=== PATIENT | male | born 1945 | race Caucasian/White ===

== ENCOUNTER 2017-02-15 11:49 | Inpatient (IN) ==
[2017-02-15] MEDS ORDERED: SODIUM CHLORIDE 0.9% 1,000 ML IV STA (13:58)
[2017-02-15 14:25] LABS: Basophils % 0.2 % (0.0-0.8); Eosinophils % 0.2 % (0.00-10.9); Hematocrit 30.3 VOL% (42.0-52.0); Hemoglobin 10.2 GM/DL (14.0-18.0); Immature Granulocytes % 0.7 %; Immature Granulocytes Absolute 0.04 #; Lymphocytes # 0.4 10*3/uL (1.4-4.0); Lymphocytes % 6.6 % (21.2-54.2); Mean Corpuscular HGB Conc 33.7 GM/DL (32-36); Mean Corpuscular Hemoglobin 31 PG (27-34); Mean Platelet Volume 10.3 FL (9.6-12.0); Monocytes # 0.5 10*3/uL (0.11-0.8); Monocytes % 8.5 % (1.7-12.7); Neutrophils % 83.8 % (38.7-73.9); Platelet Count 277 T/CUMM (130-400); Red Blood Count 3.33 MC/CUMM (3.8-5.5); Red Cell Distribution Width 15.6 % (9.3-17.3); White Blood Count 5.9 T/CUMM (4-12)
[2017-02-15 14:33] LABS: PT Patient Result 10.7 SECS
[2017-02-15 14:43] LABS: Bilirubin,Total 1.4 MG/DL (0.2-1.0); Calcium 9.5 MG/DL (8.5-10.1); Magnesium 2.2 MG/DL (1.8-2.4); Osmolality,Calculated 274.8 MOS/KG (273-304); Potassium 3.1 MMOL/L (3.5-5.1); Total Protein 7.7 G/DL (6.4-8.3)
[2017-02-15] MEDS ORDERED: ONDANSETRON 4 MG/2 ML VIAL ONE (15:50)
[2017-02-15] MEDS ORDERED: HYDROmorphone 2 MG/1 ML VIAL ONE (15:50)
[2017-02-15] MEDS ORDERED: guaiFENesin 200 MG/10 ML UDCUP PO PRN (17:17)
[2017-02-15] MEDS ORDERED: LOPERAMIDE 2 MG CAPSULE PO PRN ×2 (17:17)
[2017-02-15] MEDS ORDERED: PROMETHAZINE INJ 25 MG in SODIUM CHLORIDE 0.9% 50 ML IV PRN (17:17)
[2017-02-15] MEDS ORDERED: traMADol 50 MG TABLET PO PRN (17:17)
[2017-02-15] MEDS ORDERED: ACETAMINOPHEN 325 MG TABLET PO PRN (17:17)
[2017-02-15] MEDS ORDERED: MYLANTA/LIDO VISC 2:1 300 ML BOTTLE SWISH/SWAL PRN (17:17)
[2017-02-15] MEDS ORDERED: MYLANTA/LIDO VISC 2:1 300 ML BOTTLE SWISH/SPIT PRN (17:17)
[2017-02-15] MEDS ORDERED: chlorproMAZINE 25 MG TABLET PO PRN (17:17)
[2017-02-15] MEDS ORDERED: MAGNESIUM HYDROXIDE SUSP 30 ML UDCUP PO PRN (17:17)
[2017-02-15] MEDS ORDERED: ONDANSETRON 4 MG/2 ML VIAL IV PRN (17:17)
[2017-02-15] MEDS ORDERED: LACTULOSE 20 GM/30 ML UDCUP PO PRN (17:17)
[2017-02-15] MEDS ORDERED: chlorproMAZINE INJ 25 MG in SODIUM CHLORIDE 0.9% 100 ML IV PRN (17:17)
[2017-02-15] MEDS ORDERED: chlorproMAZINE INJ 50 MG in SODIUM CHLORIDE 0.9% 100 ML IV PRN (17:17)
[2017-02-15] MEDS ORDERED: HYDROmorphone 2 MG/1 ML VIAL IV STA (17:17)
[2017-02-15] MEDS ORDERED: TEMAZEPAM 7.5 MG CAPSULE PO PRN (17:17)
[2017-02-15] MEDS ORDERED: diphenhydrAMINE CAP 25 MG CAPSULE PO PRN (17:17)
[2017-02-15] MEDS ORDERED: ALPRAZolam 0.25 MG TABLET PO PRN (17:17)
[2017-02-15] MEDS ORDERED: ALUMINUM/MAGNES/SIMETH MAX STR 30 ML UDCUP PO PRN (17:17)
[2017-02-15] MEDS ORDERED: BENZTROPINE 2 MG/2 ML AMP IV PRN (17:17)
[2017-02-15] MEDS ORDERED: ONDANSETRON 4 MG/2 ML VIAL IV STA (17:59)
[2017-02-15] MEDS: SODIUM CHLORIDE 0.45% 1,000 ML IV SCH (18:24)
[2017-02-15] MEDS: MORPHINE 2 MG/1 ML SYRINGE IV PRN ×2 (18:24→23:59)
[2017-02-16] MEDS: MORPHINE 2 MG/1 ML SYRINGE IV PRN ×3 (03:56→10:04)
[2017-02-16] MEDS: SODIUM CHLORIDE 0.45% 1,000 ML IV SCH ×2 (04:35→14:01)
[2017-02-16] MEDS ORDERED: MECLIZINE 25 MG TABLET PO PRN (08:17)
[2017-02-16] MEDS ORDERED: ONDANSETRON 4 MG TABLET PO PRN (08:17)
[2017-02-16] MEDS ORDERED: [UNRECOGNIZED DRUG - SUPPLY] TOP PRN (08:17)
[2017-02-16] MEDS ORDERED: BENZONATATE 100 MG CAPSULE PO PRN (08:17)
[2017-02-16] MEDS ORDERED: PROMETHAZINE 25 MG TABLET PO PRN (08:17)
[2017-02-16] MEDS ORDERED: CYANOCOBALAMIN 1000 MCG/1 ML VIAL IM SCH (08:30)
[2017-02-16 09:26] LABS: Troponin I Only < 0.015 NG/ML (0.00-0.045)
[2017-02-16] MEDS: POTASSIUM CHLORIDE 20 MEQ/15 ML UDCUP PO SCH (09:54)
[2017-02-16] MEDS: MYLANTA/LIDO VISC/DIPH 300 ML BOTTLE SWISH/SWAL SCH ×2 (17:48→20:14)
[2017-02-16] MEDS: DONEPEZIL 10 MG TABLET PO SCH (20:14)
[2017-02-16] MEDS: ASPIRIN EC 81 MG TABLET PO SCH (20:14)
[2017-02-17] MEDS: SODIUM CHLORIDE 0.45% 1,000 ML IV SCH ×3 (00:08→15:23)
[2017-02-17 05:44] LABS: Basophils % 0.2 % (0.0-0.8); Eosinophils % 0.7 % (0.00-10.9); Hematocrit 30.5 VOL% (42.0-52.0); Hemoglobin 10.2 GM/DL (14.0-18.0); Immature Granulocytes % 0.4 %; Immature Granulocytes Absolute 0.02 #; Lymphocytes # 0.4 10*3/uL (1.4-4.0); Lymphocytes % 7.9 % (21.2-54.2); Mean Corpuscular HGB Conc 33.4 GM/DL (32-36); Mean Corpuscular Hemoglobin 30 PG (27-34); Mean Platelet Volume 10.8 FL (9.6-12.0); Monocytes # 0.4 10*3/uL (0.11-0.8); Monocytes % 9.5 % (1.7-12.7); Neutrophils # 3.7 10*3/uL (1.4-7.4); Neutrophils % 81.3 % (38.7-73.9); Platelet Count 226 T/CUMM (130-400); Red Blood Count 3.35 MC/CUMM (3.8-5.5); Red Cell Distribution Width 15.6 % (9.3-17.3); White Blood Count 4.5 T/CUMM (4-12)
[2017-02-17 06:23] LABS: Calcium 8.3 MG/DL (8.5-10.1); Magnesium 2.2 MG/DL (1.8-2.4); Osmolality,Calculated 277.3 MOS/KG (273-304); Potassium 3.6 MMOL/L (3.5-5.1)
[2017-02-17] MEDS: MYLANTA/LIDO VISC/DIPH 300 ML BOTTLE SWISH/SWAL SCH ×4 (07:40→20:54)
[2017-02-17] MEDS: MORPHINE 2 MG/1 ML SYRINGE IV PRN ×2 (07:45→17:06)
[2017-02-17] MEDS ORDERED: LIDOCAINE 2% 5 ML VIAL ONE (16:17)
[2017-02-17] MEDS ORDERED: PROPOFOL 200 MG/20 ML VIAL IV ONE (16:17)
[2017-02-17] MEDS: POTASSIUM CHLORIDE 20 MEQ/15 ML UDCUP PO SCH (16:48)
[2017-02-17] MEDS: DONEPEZIL 10 MG TABLET PO SCH (20:54)
[2017-02-17] MEDS: ASPIRIN EC 81 MG TABLET PO SCH (20:54)
[2017-02-18] MEDS: HYDROcod/ACETAMIN 7.5-325 MG/15 ML UDCUP PO PRN ×2 (02:09→09:18)
[2017-02-18] MEDS: SODIUM CHLORIDE 0.45% 1,000 ML IV SCH ×2 (02:10→09:11)
[2017-02-18 03:48] LABS: Basophils % 0.3 % (0.0-0.8); Eosinophils % 0.3 % (0.00-10.9); Hematocrit 29.4 VOL% (42.0-52.0); Hemoglobin 9.8 GM/DL (14.0-18.0); Immature Granulocytes % 0.3 %; Immature Granulocytes Absolute 0.02 #; Lymphocytes # 0.4 10*3/uL (1.4-4.0); Lymphocytes % 6.2 % (21.2-54.2); Mean Corpuscular HGB Conc 33.3 GM/DL (32-36); Mean Corpuscular Hemoglobin 31 PG (27-34); Mean Corpuscular Volume 92.2 FL (87-102); Mean Platelet Volume 10.9 FL (9.6-12.0); Monocytes # 0.5 10*3/uL (0.11-0.8); Monocytes % 8.4 % (1.7-12.7); Neutrophils # 4.9 10*3/uL (1.4-7.4); Neutrophils % 84.5 % (38.7-73.9); PT Patient Result 10.9 SECS; Platelet Count 228 T/CUMM (130-400); Red Blood Count 3.19 MC/CUMM (3.8-5.5); Red Cell Distribution Width 15.8 % (9.3-17.3); White Blood Count 5.8 T/CUMM (4-12)
[2017-02-18 04:10] LABS: Albumin 3.2 G/DL (3.4-5.0); Bilirubin,Total 1.1 MG/DL (0.2-1.0); Calcium 8.4 MG/DL (8.5-10.1); Magnesium 2.2 MG/DL (1.8-2.4); Osmolality,Calculated 277.3 MOS/KG (273-304); Total Protein 5.9 G/DL (6.4-8.3)
[2017-02-18] MEDS: MYLANTA/LIDO VISC/DIPH 300 ML BOTTLE SWISH/SWAL SCH (07:22)
[2017-02-18] MEDS: POTASSIUM CHLORIDE 20 MEQ/15 ML UDCUP PO SCH (09:13)
[2017-02-18 15:03] VITALS: BP 113/70
[2017-02-18] MEDS ORDERED: SUCRALFATE 1 GM/10 ML UDCUP PO SCH (16:30)
== END 2017-02-18 16:50 | disposition home health service (06) | DRG 392 ==
LOC: N.ED 11:49 → N.EDINP 16:17 → N.4E 18:05
PROVIDERS: ADMIT Specialist; ATTEND Specialist

== ENCOUNTER 2017-04-27 10:19 | Inpatient (IN) ==
[2017-04-27 13:15] LABS: Basophils % 0.3 % (0.0-0.8); Eosinophils % 0.3 % (0.00-10.9); Hematocrit 31.6 VOL% (42.0-52.0); Hemoglobin 10.3 GM/DL (14.0-18.0); Immature Granulocytes % 0.7 %; Immature Granulocytes Absolute 0.04 #; Lymphocytes # 0.3 10*3/uL (1.4-4.0); Lymphocytes % 4.7 % (21.2-54.2); Mean Corpuscular HGB Conc 32.6 GM/DL (32-36); Mean Corpuscular Hemoglobin 28 PG (27-34); Mean Corpuscular Volume 84.5 FL (87-102); Mean Platelet Volume 10.3 FL (9.6-12.0); Monocytes # 0.3 10*3/uL (0.11-0.8); Monocytes % 5.6 % (1.7-12.7); Neutrophils # 5.4 10*3/uL (1.4-7.4); Neutrophils % 88.4 % (38.7-73.9); Platelet Count 356 T/CUMM (130-400); Red Blood Count 3.74 MC/CUMM (3.8-5.5); Red Cell Distribution Width 13.7 % (9.3-17.3); White Blood Count 6.1 T/CUMM (4-12)
[2017-04-27 13:45] LABS: Eosinophils 2 % (0-10); Giant Platelets Few; Hypochromasia 1+; Lymphocytes 6 % (20-55); Ovalocytes Slight; Platelet Estimate Adequate; Segmented Neutrophils 89 % (50-85); Total Cells Counted 100
[2017-04-27 14:34] LABS: Albumin 2.5 G/DL (3.4-5.0); Bilirubin,Total 0.5 MG/DL (0.2-1.0); Calcium 8.9 MG/DL (8.5-10.1); Osmolality,Calculated 277.5 MOS/KG (273-304); Potassium 4.1 MMOL/L (3.5-5.1); Total Protein 7.1 G/DL (6.4-8.3)
[2017-04-27] MEDS ORDERED: methylPREDNISolone SOD SUC 125 MG/2 ML VIAL IV STA (14:53)
[2017-04-27] MEDS ORDERED: PIPERACILLIN/TAZOBACTAM 3,375 MG in SODIUM CHLORIDE 0.9% 100 ML IV STA (14:53)
[2017-04-27] MEDS ORDERED: PIPERACILLIN/TAZOBACTAM 3,375 MG VIAL IV ONE (15:39)
[2017-04-27] MEDS ORDERED: methylPREDNISolone SOD SUC 125 MG/2 ML VIAL ONE (15:39)
[2017-04-27] MEDS ORDERED: MYLANTA/LIDO VISC 2:1 300 ML BOTTLE SWISH/SWAL PRN (18:17)
[2017-04-27] MEDS ORDERED: chlorproMAZINE INJ 25 MG in SODIUM CHLORIDE 0.9% 100 ML IV PRN (18:17)
[2017-04-27] MEDS ORDERED: chlorproMAZINE 25 MG TABLET PO PRN (18:17)
[2017-04-27] MEDS ORDERED: LOPERAMIDE 2 MG CAPSULE PO PRN ×2 (18:17)
[2017-04-27] MEDS ORDERED: ALPRAZolam 0.25 MG TABLET PO PRN (18:17)
[2017-04-27] MEDS ORDERED: ONDANSETRON 4 MG/2 ML VIAL IV PRN (18:17)
[2017-04-27] MEDS ORDERED: MAGNESIUM HYDROXIDE SUSP 30 ML UDCUP PO PRN (18:17)
[2017-04-27] MEDS ORDERED: chlorproMAZINE INJ 50 MG in SODIUM CHLORIDE 0.9% 100 ML IV PRN (18:17)
[2017-04-27] MEDS ORDERED: PROMETHAZINE INJ 25 MG in SODIUM CHLORIDE 0.9% 50 ML IV PRN (18:17)
[2017-04-27] MEDS ORDERED: BENZTROPINE 2 MG/2 ML AMP IV PRN (18:17)
[2017-04-27] MEDS ORDERED: MYLANTA/LIDO VISC 2:1 300 ML BOTTLE SWISH/SPIT PRN (18:17)
[2017-04-27] MEDS ORDERED: guaiFENesin 200 MG/10 ML UDCUP PO PRN (18:17)
[2017-04-27] MEDS ORDERED: LACTULOSE 20 GM/30 ML UDCUP PO PRN (18:17)
[2017-04-27] MEDS ORDERED: ACETAMINOPHEN 325 MG TABLET PO PRN (18:17)
[2017-04-27] MEDS ORDERED: traMADol 50 MG TABLET PO PRN (18:17)
[2017-04-27] MEDS ORDERED: diphenhydrAMINE CAP 25 MG CAPSULE PO PRN (18:17)
[2017-04-27] MEDS: SODIUM CHLORIDE 0.9% 1,000 ML IV SCH (19:06)
[2017-04-27 19:38] LABS: Albumin 2.6 G/DL (3.4-5.0); Bilirubin,Total 0.7 MG/DL (0.2-1.0); Calcium 8.9 MG/DL (8.5-10.1); Osmolality,Calculated 276.7 MOS/KG (273-304); Potassium 3.7 MMOL/L (3.5-5.1); Total Protein 6.9 G/DL (6.4-8.3)
[2017-04-28 09:09] LABS: Apearance,Urine Slightly Hazy (Clear); Bilirubin,Urine Negative (Negative); Blood, Urine Negative (Negative); Glucose,Urine (UA) 50 mg/dL (Negative); Ketones,Urine Negative (Negative); Mucus,Urine Many /LPF (Occasional); Nitrite,Urine Negative (Negative); Protein,Urine Negative; Urine Color Yellow (Yellow); Urine Specific Gravity 1.025 (1.001-1.035); Urine Urobilinogen < 2.0 EU/DL (0.2-1.0); WBC,Urine 2 /HPF (0-6)
[2017-04-28] MEDS ORDERED: BENZONATATE 100 MG CAPSULE PO PRN (09:25)
[2017-04-28] MEDS ORDERED: fentaNYL 12 MCG/HR PATCH TRANSDERM SCH (09:30)
[2017-04-28] MEDS ORDERED: CYANOCOBALAMIN 1000 MCG/1 ML VIAL IM SCH (09:30)
[2017-04-28 09:37] LABS: ABG Base Excess 2.5 MMOL/L (-2.5-2.5); ABG HCO3 26.5 MMOL/L (20-26); ABG Oxygen Saturation 88.8 % (95-100); ABG PCO2 35.1 MM HG (35-48); ABG PH 7.476 (7.35-7.45); ABG PO2 57.5 MM HG (80-95); ABG TCO2 23.5 MMOL/L (23-27)
[2017-04-28] MEDS: methylPREDNISolone SOD SUC 40 MG/1 ML VIAL IV SCH ×2 (09:37→20:29)
[2017-04-28] MEDS: SULFAMETHOX/TRIMETHOPRIM 800-160 MG TABLET PO SCH ×2 (09:37→20:34)
[2017-04-28] MEDS: AZITHROMYCIN INJ 250 MG in SODIUM CHLORIDE 0.9% 250 ML IV SCH (09:38)
[2017-04-28] MEDS: SODIUM CHLORIDE 0.9% 1,000 ML IV SCH ×2 (09:48→23:54)
[2017-04-28] MEDS ORDERED: ONDANSETRON 4 MG TABLET PO PRN (10:00)
[2017-04-28] MEDS: FONDAPARINUX 2.5 MG/0.5 ML SYRINGE SUBCUT SCH (11:52)
[2017-04-28] MEDS: SUCRALFATE 1 GM/10 ML UDCUP PO SCH ×3 (11:53→20:34)
[2017-04-28] MEDS: fentaNYL 12 MCG/HR PATCH TRANSDERM SCH (11:53)
[2017-04-28] MEDS: PIPERACILLIN/TAZOBACTAM 3,375 MG in SODIUM CHLORIDE 0.9% 100 ML IV SCH ×2 (11:54→20:33)
[2017-04-28] MEDS: ALBUTEROL/IPRATROPIUM 3 ML NEB RESP TX SCH ×2 (13:48→19:45)
[2017-04-28] MEDS: HYDROcod/ACETAMIN 7.5-325 MG/15 ML UDCUP PO PRN (17:56)
[2017-04-28] MEDS: ASPIRIN EC 81 MG TABLET PO SCH (20:34)
[2017-04-28] MEDS: DONEPEZIL 10 MG TABLET PO SCH (20:34)
[2017-04-29] MEDS: PIPERACILLIN/TAZOBACTAM 3,375 MG in SODIUM CHLORIDE 0.9% 100 ML IV SCH ×3 (04:46→20:41)
[2017-04-29] MEDS: SODIUM CHLORIDE 0.9% 1,000 ML IV SCH (05:03)
[2017-04-29 05:26] LABS: Hematocrit 29.7 VOL% (42.0-52.0); Hemoglobin 9.6 GM/DL (14.0-18.0); Immature Granulocytes Absolute 0.09 #; Lymphocytes # 0.2 10*3/uL (1.4-4.0); Lymphocytes % 2.1 % (21.2-54.2); Mean Corpuscular HGB Conc 32.3 GM/DL (32-36); Mean Corpuscular Hemoglobin 28 PG (27-34); Mean Corpuscular Volume 85.8 FL (87-102); Mean Platelet Volume 10.3 FL (9.6-12.0); Monocytes # 0.2 10*3/uL (0.11-0.8); Neutrophils % 94.9 % (38.7-73.9); Platelet Count 359 T/CUMM (130-400); Red Blood Count 3.46 MC/CUMM (3.8-5.5); Red Cell Distribution Width 13.7 % (9.3-17.3); White Blood Count 9.5 T/CUMM (4-12)
[2017-04-29 05:50] LABS: Band Neutrophils 2 % (0-10); Lymphocytes 3 % (20-55); Platelet Estimate Normal; Segmented Neutrophils 94 % (50-85); Total Cells Counted 100
[2017-04-29 06:02] LABS: Calcium 8.3 MG/DL (8.5-10.1); Osmolality,Calculated 288.1 MOS/KG (273-304); Potassium 4.2 MMOL/L (3.5-5.1)
[2017-04-29] MEDS: ALBUTEROL/IPRATROPIUM 3 ML NEB RESP TX SCH ×3 (07:41→19:40)
[2017-04-29] MEDS: SUCRALFATE 1 GM/10 ML UDCUP PO SCH ×4 (09:17→20:39)
[2017-04-29] MEDS: SULFAMETHOX/TRIMETHOPRIM 800-160 MG TABLET PO SCH ×2 (09:17→20:39)
[2017-04-29] MEDS: POTASSIUM CHLORIDE 8 MEQ CAPSULE PO SCH (09:18)
[2017-04-29] MEDS: PANTOPRAZOLE 40 MG TABLET PO SCH (09:18)
[2017-04-29] MEDS: methylPREDNISolone SOD SUC 40 MG/1 ML VIAL IV SCH ×2 (09:18→20:39)
[2017-04-29] MEDS: FONDAPARINUX 2.5 MG/0.5 ML SYRINGE SUBCUT SCH (09:22)
[2017-04-29] MEDS: AZITHROMYCIN INJ 250 MG in SODIUM CHLORIDE 0.9% 250 ML IV SCH (09:22)
[2017-04-29] MEDS: HYDROcod/ACETAMIN 7.5-325 MG/15 ML UDCUP PO PRN (15:43)
[2017-04-29] MEDS: ASPIRIN EC 81 MG TABLET PO SCH (20:39)
[2017-04-29] MEDS: DONEPEZIL 10 MG TABLET PO SCH (20:39)
[2017-04-30] MEDS: PIPERACILLIN/TAZOBACTAM 3,375 MG in SODIUM CHLORIDE 0.9% 100 ML IV SCH ×3 (04:16→20:27)
[2017-04-30 06:26] LABS: Hematocrit 30.7 VOL% (42.0-52.0); Hemoglobin 9.5 GM/DL (14.0-18.0); Immature Granulocytes % 1.1 %; Immature Granulocytes Absolute 0.09 #; Lymphocytes # 0.2 10*3/uL (1.4-4.0); Lymphocytes % 2.8 % (21.2-54.2); Mean Corpuscular HGB Conc 30.9 GM/DL (32-36); Mean Corpuscular Hemoglobin 27 PG (27-34); Mean Corpuscular Volume 87.7 FL (87-102); Mean Platelet Volume 10.8 FL (9.6-12.0); Monocytes # 0.1 10*3/uL (0.11-0.8); Monocytes % 1.6 % (1.7-12.7); Neutrophils # 7.9 10*3/uL (1.4-7.4); Neutrophils % 94.5 % (38.7-73.9); Platelet Count 358 T/CUMM (130-400); White Blood Count 8.3 T/CUMM (4-12)
[2017-04-30 06:53] LABS: Calcium 8.1 MG/DL (8.5-10.1); Osmolality,Calculated 283.5 MOS/KG (273-304); Potassium 4.5 MMOL/L (3.5-5.1)
[2017-04-30 07:03] LABS: Lymphocytes 7 % (20-55); Segmented Neutrophils 92 % (50-85); Total Cells Counted 100
[2017-04-30 07:04] LABS: Anisocytosis 1+; Hypochromasia 1+; Ovalocytes Few; Platelet Estimate Normal
[2017-04-30] MEDS: ALBUTEROL/IPRATROPIUM 3 ML NEB RESP TX SCH ×3 (07:05→20:25)
[2017-04-30] MEDS: methylPREDNISolone SOD SUC 40 MG/1 ML VIAL IV SCH ×3 (08:45→20:22)
[2017-04-30] MEDS: SULFAMETHOX/TRIMETHOPRIM 800-160 MG TABLET PO SCH ×2 (08:46→20:21)
[2017-04-30] MEDS: SUCRALFATE 1 GM/10 ML UDCUP PO SCH ×4 (08:46→20:22)
[2017-04-30] MEDS: PANTOPRAZOLE 40 MG TABLET PO SCH (08:46)
[2017-04-30] MEDS: POTASSIUM CHLORIDE 8 MEQ CAPSULE PO SCH (08:46)
[2017-04-30] MEDS: AZITHROMYCIN INJ 250 MG in SODIUM CHLORIDE 0.9% 250 ML IV SCH (09:01)
[2017-04-30] MEDS: FONDAPARINUX 2.5 MG/0.5 ML SYRINGE SUBCUT SCH (11:52)
[2017-04-30] MEDS: SODIUM CHLORIDE 0.9% 1,000 ML IV SCH ×2 (13:43→23:40)
[2017-04-30] MEDS: ASPIRIN EC 81 MG TABLET PO SCH (20:21)
[2017-04-30] MEDS: DONEPEZIL 10 MG TABLET PO SCH (20:21)
[2017-05-01] MEDS: methylPREDNISolone SOD SUC 40 MG/1 ML VIAL IV SCH ×4 (02:13→20:29)
[2017-05-01 05:23] LABS: Basophils % 0.1 % (0.0-0.8); Hematocrit 31.9 VOL% (42.0-52.0); Hemoglobin 10.1 GM/DL (14.0-18.0); Immature Granulocytes % 2.3 %; Immature Granulocytes Absolute 0.17 #; Lymphocytes # 0.2 10*3/uL (1.4-4.0); Lymphocytes % 2.6 % (21.2-54.2); Mean Corpuscular HGB Conc 31.7 GM/DL (32-36); Mean Corpuscular Hemoglobin 27 PG (27-34); Mean Corpuscular Volume 86.2 FL (87-102); Mean Platelet Volume 10.3 FL (9.6-12.0); Monocytes # 0.2 10*3/uL (0.11-0.8); Monocytes % 2.6 % (1.7-12.7); NRBC # 0.03 10*3/uL; Neutrophils # 6.8 10*3/uL (1.4-7.4); Neutrophils % 92.4 % (38.7-73.9); Platelet Count 386 T/CUMM (130-400); Red Cell Distribution Width 14.1 % (9.3-17.3); White Blood Count 7.3 T/CUMM (4-12)
[2017-05-01 05:53] LABS: Calcium 8.7 MG/DL (8.5-10.1); Osmolality,Calculated 280.7 MOS/KG (273-304); Potassium 4.7 MMOL/L (3.5-5.1)
[2017-05-01 06:03] LABS: Band Neutrophils 1 % (0-10); Lymphocytes 8 % (20-55); Platelet Estimate Normal; Segmented Neutrophils 90 % (50-85); Total Cells Counted 100
[2017-05-01] MEDS: ALBUTEROL/IPRATROPIUM 3 ML NEB RESP TX SCH ×3 (07:57→19:09)
[2017-05-01] MEDS: AZITHROMYCIN INJ 250 MG in SODIUM CHLORIDE 0.9% 250 ML IV SCH (08:26)
[2017-05-01] MEDS: SULFAMETHOX/TRIMETHOPRIM 800-160 MG TABLET PO SCH ×2 (08:27→20:24)
[2017-05-01] MEDS: PANTOPRAZOLE 40 MG TABLET PO SCH (08:27)
[2017-05-01] MEDS: SUCRALFATE 1 GM/10 ML UDCUP PO SCH ×4 (08:27→20:25)
[2017-05-01] MEDS: POTASSIUM CHLORIDE 8 MEQ CAPSULE PO SCH (08:27)
[2017-05-01] MEDS ORDERED: FUROSEMIDE 40 MG/4 ML VIAL IV ONE (09:34)
[2017-05-01] MEDS: PIPERACILLIN/TAZOBACTAM 3,375 MG in SODIUM CHLORIDE 0.9% 100 ML IV SCH ×2 (10:27→16:03)
[2017-05-01] MEDS: FONDAPARINUX 2.5 MG/0.5 ML SYRINGE SUBCUT SCH (10:30)
[2017-05-01] MEDS: fentaNYL 12 MCG/HR PATCH TRANSDERM SCH (10:31)
[2017-05-01] MEDS: ASPIRIN EC 81 MG TABLET PO SCH (20:24)
[2017-05-01] MEDS: DONEPEZIL 10 MG TABLET PO SCH (20:24)
[2017-05-02] MEDS: PIPERACILLIN/TAZOBACTAM 3,375 MG in SODIUM CHLORIDE 0.9% 100 ML IV SCH ×3 (01:16→17:08)
[2017-05-02] MEDS: TEMAZEPAM 7.5 MG CAPSULE PO PRN ×2 (01:20→21:53)
[2017-05-02] MEDS: methylPREDNISolone SOD SUC 40 MG/1 ML VIAL IV SCH ×4 (02:47→21:50)
[2017-05-02 05:28] LABS: Basophils % 0.2 % (0.0-0.8); Hematocrit 33.8 VOL% (42.0-52.0); Hemoglobin 10.7 GM/DL (14.0-18.0); Immature Granulocytes Absolute 0.25 #; Lymphocytes # 0.2 10*3/uL (1.4-4.0); Lymphocytes % 2.8 % (21.2-54.2); Mean Corpuscular HGB Conc 31.7 GM/DL (32-36); Mean Corpuscular Hemoglobin 27 PG (27-34); Mean Corpuscular Volume 85.6 FL (87-102); Mean Platelet Volume 10.1 FL (9.6-12.0); Monocytes # 0.4 10*3/uL (0.11-0.8); Monocytes % 4.2 % (1.7-12.7); NRBC # 0.04 10*3/uL; Neutrophils # 7.5 10*3/uL (1.4-7.4); Neutrophils % 89.8 % (38.7-73.9); Platelet Count 423 T/CUMM (130-400); Red Blood Count 3.95 MC/CUMM (3.8-5.5); Red Cell Distribution Width 14.6 % (9.3-17.3); White Blood Count 8.4 T/CUMM (4-12)
[2017-05-02 05:37] LABS: Calcium 8.5 MG/DL (8.5-10.1); Osmolality,Calculated 281.7 MOS/KG (273-304); Potassium 4.8 MMOL/L (3.5-5.1)
[2017-05-02 05:59] LABS: Hypochromasia 1+; Lymphocytes 1 % (20-55); Microcytosis 1+; Myelocytes 1 %; Nucleated Red Blood Cells 1 (0-5); Ovalocytes Few; Segmented Neutrophils 96 % (50-85); Total Cells Counted 100
[2017-05-02 06:00] LABS: Platelet Estimate Increased
[2017-05-02] MEDS: ALBUTEROL/IPRATROPIUM 3 ML NEB RESP TX SCH ×3 (07:47→19:38)
[2017-05-02] MEDS: POTASSIUM CHLORIDE 8 MEQ CAPSULE PO SCH (08:24)
[2017-05-02] MEDS: PANTOPRAZOLE 40 MG TABLET PO SCH (08:24)
[2017-05-02] MEDS: SULFAMETHOX/TRIMETHOPRIM 800-160 MG TABLET PO SCH ×2 (08:24→21:53)
[2017-05-02] MEDS: SUCRALFATE 1 GM/10 ML UDCUP PO SCH ×4 (08:25→21:53)
[2017-05-02] MEDS: HYDROcod/ACETAMIN 7.5-325 MG/15 ML UDCUP PO PRN (10:46)
[2017-05-02] MEDS: FONDAPARINUX 2.5 MG/0.5 ML SYRINGE SUBCUT SCH (10:49)
[2017-05-02] MEDS: AZITHROMYCIN INJ 250 MG in SODIUM CHLORIDE 0.9% 250 ML IV SCH (13:11)
[2017-05-02] MEDS: ASPIRIN EC 81 MG TABLET PO SCH (21:53)
[2017-05-02] MEDS: DONEPEZIL 10 MG TABLET PO SCH (21:53)
[2017-05-03] MEDS: PIPERACILLIN/TAZOBACTAM 3,375 MG in SODIUM CHLORIDE 0.9% 100 ML IV SCH ×3 (00:34→15:57)
[2017-05-03] MEDS: methylPREDNISolone SOD SUC 40 MG/1 ML VIAL IV SCH ×4 (04:55→21:25)
[2017-05-03 06:24] LABS: Basophils % 0.2 % (0.0-0.8); Hematocrit 34.3 VOL% (42.0-52.0); Hemoglobin 10.7 GM/DL (14.0-18.0); Immature Granulocytes % 4.4 %; Immature Granulocytes Absolute 0.46 #; Lymphocytes # 0.2 10*3/uL (1.4-4.0); Lymphocytes % 2.2 % (21.2-54.2); Mean Corpuscular HGB Conc 31.2 GM/DL (32-36); Mean Corpuscular Hemoglobin 27 PG (27-34); Mean Corpuscular Volume 87.7 FL (87-102); Mean Platelet Volume 10.2 FL (9.6-12.0); Monocytes # 0.5 10*3/uL (0.11-0.8); Monocytes % 4.4 % (1.7-12.7); NRBC # 0.05 10*3/uL; Neutrophils # 9.2 10*3/uL (1.4-7.4); Neutrophils % 88.8 % (38.7-73.9); Platelet Count 397 T/CUMM (130-400); Red Blood Count 3.91 MC/CUMM (3.8-5.5); Red Cell Distribution Width 14.6 % (9.3-17.3); White Blood Count 10.4 T/CUMM (4-12)
[2017-05-03 06:48] LABS: Lymphocytes 3 % (20-55); Platelet Estimate Adequate; Segmented Neutrophils 96 % (50-85); Total Cells Counted 100
[2017-05-03 06:49] LABS: Giant Platelets Few; Hypochromasia 1+; Microcytosis Slight; Ovalocytes Slight
[2017-05-03 06:57] LABS: Calcium 8.5 MG/DL (8.5-10.1); Potassium 4.7 MMOL/L (3.5-5.1)
[2017-05-03] MEDS ORDERED: GLYCOPYRROLATE 0.4 MG/2 ML VIAL IM ONE (07:00)
[2017-05-03] MEDS ORDERED: PROMETHAZINE 25 MG/1 ML VIAL IM ONE (07:00)
[2017-05-03] MEDS ORDERED: MEPERIDINE 50 MG/1 ML VIAL IM ONE (07:00)
[2017-05-03] MEDS ORDERED: MIDAZOLAM 2 MG/2 ML VIAL ONE (07:02)
[2017-05-03] MEDS ORDERED: LIDOCAINE 2% VISCOUS 100 ML BOTTLE SWISH/SPIT ONE (07:30)
[2017-05-03] MEDS ORDERED: LIDOCAINE 1% 20 ML VIAL MISC INJ ONE (07:30)
[2017-05-03] MEDS ORDERED: LIDOCAINE 2% 20 ML VIAL RESP TX ONE (07:30)
[2017-05-03] MEDS ORDERED: MIDAZOLAM 2 MG/2 ML VIAL IV ONE (07:30)
[2017-05-03] MEDS: SUCRALFATE 1 GM/10 ML UDCUP PO SCH ×4 (07:31→21:21)
[2017-05-03] MEDS: ALBUTEROL/IPRATROPIUM 3 ML NEB RESP TX SCH ×3 (08:09→19:31)
[2017-05-03] MEDS: AZITHROMYCIN INJ 250 MG in SODIUM CHLORIDE 0.9% 250 ML IV SCH (09:12)
[2017-05-03] MEDS: FONDAPARINUX 2.5 MG/0.5 ML SYRINGE SUBCUT SCH (09:13)
[2017-05-03] MEDS: POTASSIUM CHLORIDE 8 MEQ CAPSULE PO SCH (09:45)
[2017-05-03] MEDS: SULFAMETHOX/TRIMETHOPRIM 800-160 MG TABLET PO SCH ×2 (09:45→21:19)
[2017-05-03] MEDS: PANTOPRAZOLE 40 MG TABLET PO SCH (09:46)
[2017-05-03] MEDS: ASPIRIN EC 81 MG TABLET PO SCH (21:19)
[2017-05-03] MEDS: DONEPEZIL 10 MG TABLET PO SCH (21:19)
[2017-05-03] MEDS: HYDROcod/ACETAMIN 7.5-325 MG/15 ML UDCUP PO PRN (21:23)
[2017-05-04] MEDS: ALUMINUM/MAGNES/SIMETH MAX STR 30 ML UDCUP PO PRN ×2 (01:05→18:33)
[2017-05-04] MEDS: methylPREDNISolone SOD SUC 40 MG/1 ML VIAL IV SCH ×4 (04:27→21:41)
[2017-05-04] MEDS: ALBUTEROL/IPRATROPIUM 3 ML NEB RESP TX SCH ×3 (07:00→19:20)
[2017-05-04] MEDS: SUCRALFATE 1 GM/10 ML UDCUP PO SCH ×4 (08:23→21:40)
[2017-05-04] MEDS ORDERED: ALBUTEROL/IPRATROPIUM 3 ML NEB RESP TX STA (09:37)
[2017-05-04] MEDS ORDERED: ALBUTEROL/IPRATROPIUM 3 ML NEB RESP TX ONE (09:54)
[2017-05-04] MEDS: PIPERACILLIN/TAZOBACTAM 3,375 MG in SODIUM CHLORIDE 0.9% 100 ML IV SCH ×4 (13:27→21:41)
[2017-05-04] MEDS: POTASSIUM CHLORIDE 8 MEQ CAPSULE PO SCH (13:28)
[2017-05-04] MEDS: SULFAMETHOX/TRIMETHOPRIM 800-160 MG TABLET PO SCH ×2 (13:28→21:39)
[2017-05-04] MEDS: PANTOPRAZOLE 40 MG TABLET PO SCH (13:29)
[2017-05-04] MEDS ORDERED: LIDOCAINE 1% 5 ML VIAL ONE (14:30)
[2017-05-04] MEDS ORDERED: PROPOFOL 200 MG/20 ML VIAL IV ONE (14:30)
[2017-05-04] MEDS: fentaNYL 12 MCG/HR PATCH TRANSDERM SCH (14:48)
[2017-05-04] MEDS: AZITHROMYCIN INJ 250 MG in SODIUM CHLORIDE 0.9% 250 ML IV SCH (17:45)
[2017-05-04] MEDS: DONEPEZIL 10 MG TABLET PO SCH (21:39)
[2017-05-04] MEDS: ASPIRIN EC 81 MG TABLET PO SCH (21:39)
[2017-05-05] MEDS: methylPREDNISolone SOD SUC 40 MG/1 ML VIAL IV SCH ×2 (03:56→11:07)
[2017-05-05] MEDS: PIPERACILLIN/TAZOBACTAM 3,375 MG in SODIUM CHLORIDE 0.9% 100 ML IV SCH (06:02)
[2017-05-05] MEDS: ALBUTEROL/IPRATROPIUM 3 ML NEB RESP TX SCH ×2 (07:01→13:39)
[2017-05-05] MEDS: SULFAMETHOX/TRIMETHOPRIM 800-160 MG TABLET PO SCH (08:35)
[2017-05-05] MEDS: SUCRALFATE 1 GM/10 ML UDCUP PO SCH ×2 (08:35→11:07)
[2017-05-05] MEDS: POTASSIUM CHLORIDE 8 MEQ CAPSULE PO SCH (08:35)
[2017-05-05] MEDS: PANTOPRAZOLE 40 MG TABLET PO SCH (08:36)
[2017-05-05] MEDS: AZITHROMYCIN INJ 250 MG in SODIUM CHLORIDE 0.9% 250 ML IV SCH (11:07)
[2017-05-05 16:45] VITALS: BP 121/58
== END 2017-05-05 16:30 | disposition swing bed (61) | DRG 190 ==
LOC: EDUNIT# → EDBD → N.ED 10:19 → N.EDINP 14:54 → N.4E 18:15
PROVIDERS: ADMIT Specialist; ATTEND Specialist
PROC: BRONCHB (2017-05-03 07:20)